=== PATIENT | male | born 1960 | race Caucasian/White ===

== ENCOUNTER 2020-09-20 14:25 | Emergency (ER) | payer OTHER, SELFPAY ==
--- NOTE | ~2020-09-20 | XR_ITS ---
EXAMINATION: XR wrist LT min 3V EXAM DATE: 09/20/2020 14:47 INDICATION: Left wrist pain after a fall last night . Initial encounter. TECHNIQUE: Left wrist frontal, frontal with ulnar deviation, oblique and lateral projections obtained and reviewed. There is no prior study for comparison. FINDINGS: Left wrist scapholunate joint space is maintained. There are no acute fractures or dislocat ions identified. There is no subcutaneous gas. Mild arteriosclerosis. There are no radiopaque fore ign bodies. IMPRESSION: No acute osseous findings. Reviewed, dictated and finalized at location A. IMPRESSION: No acute osseous findings.
[2020-09-20 14:38] VITALS: BP 146/65; PULSE 71; RESP 18; TEMP 37.1; O2SAT 97
--- NOTE | 2020-09-20 15:00 | ED.UPPEXIN ---
HPI - Extremity Injury (Upper) General Chief Complaint: Extremity Injury, Upper Stated Complaint: left wrist injury Time Seen by Provider: 09/20/20 15:00 Source: patient Mode of arrival: ambulatory History of Present Illness HPI narrative: Patient presents with left wrist pain. Patient states he was trying to step over a board between 2 doorways yesterday lost his balance and fell landed on his left wrist. Patient has pain and swelling to the lateral side of wrist. No deformity noted. MD complaint: injury to: left and wrist Other Extremity Injury: Left: wrist Related Data Allergies Allergy/AdvReac Type Severity Reaction Status Date / Time No Known Allergies Allergy Verified 09/20/20 14:47 Review of Systems Review of Systems: Narrative: CONSTITUTIONAL: Denies fever, chills, or sweats. EYES: Denies visual changes, redness, or discharge. ENT: Denies rhinorrhea, congestion, sore throat, or otalgia. CARDIOVASCULAR: Denies chest pain, palpitations, or edema. RESPIRATORY: Denies cough or dyspnea. GASTROINTESTINAL: Denies abdominal pain, nausea, vomiting, or diarrhea. GENITOURINARY: Denies dysuria or hematuria. SKIN: Denies rash or itching. MUSCULOSKELETAL: Denies back pain, joint pain, or myalgia. NEUROLOGIC: Denies headache, numbness, or weakness. PSYCHIATRIC: Denies anxiety or depression. PMFSH Comments At time of signature, agree with nursing past medical, surgical, social and family history. There is no relevant family history pertinent to the presenting complaint Exam Narrative: Exam Narrative: GENERAL: Well-appearing, well-nourished, and in no acute distress. HEAD: Normocephalic, atraumatic. EYES: PERRLA and EOMI. ENT: Nares clear, no rhinorrhea or epistaxis. Mucous membranes moist. NECK: Supple. CHEST: Clear to auscultation. No respiratory distress. HEART: Regular rate and rhythm. No murmur heard. Normal peripheral pulses. ABDOMEN: Soft, nontender, nondistended, normal active bowel sounds. EXTREMITIES: Normal range of motion. No edema. SKIN: Warm, dry, no rash. NEURO: No focal deficits. Alert and oriented x3. [place] Coma Scale Eye Opening: Spontaneous 4 [place] Coma Scale Motor: Obeys Commands 6 [place] Coma Scale Verbal: Oriented 5 [place] Coma Scale Total 15 HAND EXAM/WRIST EXAM - Skin intact, no laceration, no swelling, no erythema, normal digit cascade with flexion of fingers, median, ulnar and radial nerve intact normal sensation of each side of each finger, can perform `ok? sign, `cross over finger test of index and middle fingers? and `thumbs up? sign, no scissoring. normal thumb opposition, good capillary refill and radial pulse. WRIST - ROM is normal - flexion, extension and supination. no swelling. Normal forearm and elbow. ` Course Vital Signs Vital signs: Vital Signs Temperature 37.1 C 09/20/20 14:38 Pulse Rate 71 09/20/20 14:38 Respiratory Rate 18 09/20/20 14:38 Blood Pressure 146/65 H 09/20/20 14:38 Pulse Oximetry 97 09/20/20 14:38 Temperature 37.1 C 09/20/20 14:38 Pulse Rate 71 09/20/20 14:38 Respiratory Rate 18 09/20/20 14:38 Blood Pressure 146/65 H 09/20/20 14:38 Pulse Oximetry 97 09/20/20 14:38 Please DIGNA schedule a followup visit with your personal physician for further evaluation and treatment. Including recheck and discussion of your blood pressure. If your symptoms persist, change or worsen significantly before you can contact your personal physician then please, without delay, go to the emergency department for further evaluation MDM - Extremity Injury (Upper) Differential Diagnosis Differential diagnosis: Likely sprain and strain of wrist, fracture of wrist, finger sprain, dislocation of finger, Colles' fracture, fracture of hand, dislocation of shoulder, fracture of humerus and fracture of clavicle Critical Care Time Critical Care Time Critical Care Time: No Discharge Plan Discharge Clinical Impression: Sprain and strain of wrist Patient Di
== END 2020-09-20 15:05 | disposition home or self-care (01) ==
PROVIDERS: Emergency Provider Nurse Practitioner Family; PCP Internal Medicine
DX: S63.502A Unspecified sprain of left wrist, initial encounter (principal); S66.912A Strain of unspecified muscle, fascia and tendon at wrist and hand level, left hand, initial encounter; W19.XXXA Unspecified fall, initial encounter; Z86.73 Personal history of transient ischemic attack (TIA), and cerebral infarction without residual deficits; E78.00 Pure hypercholesterolemia, unspecified; I10 Essential (primary) hypertension; I25.2 Old myocardial infarction; Z95.5 Presence of coronary angioplasty implant and graft; E11.9 Type 2 diabetes mellitus without complications
CPT/HCPCS: 73110; 99213; G0463

== ENCOUNTER 2020-10-29 13:32 | Emergency (ER) | payer OTHER, SELFPAY ==
--- NOTE | ~2020-10-29 | XR_ITS ---
EXAMINATION: XR chest 2V EXAM DATE: 10/29/2020 14:10 INDICATION: Cough, shortness of breath. Symptoms 2 months. History pneumonia. TECHNIQUE: Frontal and lateral projections of the chest obtained and reviewed. There is no prior [place] dy for comparison. FINDINGS: The lungs are clear. There are no pleural effusions. The cardiomediastinal silhouette is within normal limits. There is no pneumothorax suspected. The bones and soft tissues are unremarkab le. IMPRESSION: No acute cardiopulmonary findings. Reviewed, dictated and finalized at location B.
[2020-10-29 13:40] VITALS: BP 109/64; PULSE 82; RESP 14; TEMP 36.5; O2SAT 98
--- NOTE | 2020-10-29 14:24 | ED.URI ---
HPI - URI/Sore Throat General Chief Complaint: Upper Respiratory Infection Stated Complaint: chills achey cough tight chest Time Seen by Provider: 10/29/20 14:25 Source: patient and RN notes reviewed Mode of arrival: ambulatory Limitations: no limitations History of Present Illness HPI Narrative: 59-year-old male with history of smoking, CVA, hypertension, high cholesterol, [place] with stents, diabetes presents with concern for worsening cough, chills, upper back pain with coughing since Tuesday. Reports several month history of smoker's cough that he feels worsened since Tuesday. He denies chest pain, shortness of breath, diaphoresis. Reports he was vaccinated for Covid in May. He denies rhinorrhea, nasal congestion, sore throat, body aches, fever, loss of sense of taste or smell. Reports symptoms similar to prior cases of pneumonia. MD elicited complaint: cough Related Data Home Medications Medication Instructions Recorded Confirmed amlodipine See Rx Instructions .ROUTE .COMPLEX 09/20/20 10/29/20 aspirin [Aspirin Low Dose] 81 mg PO DAILY 09/20/20 10/29/20 atorvastatin See Rx Instructions .ROUTE .COMPLEX 09/20/20 10/29/20 insulin aspart U-100 [Novolog See Rx Instructions .ROUTE .COMPLEX 09/20/20 10/29/20 Flexpen U-100 Insulin] insulin degludec-liraglutide See Rx Instructions .ROUTE .COMPLEX 09/20/20 10/29/20 [Xultophy 100/3.6] lisinopril See Rx Instructions .ROUTE .COMPLEX 09/20/20 10/29/20 nebivolol [Bystolic] See Rx Instructions .ROUTE .COMPLEX 09/20/20 10/29/20 Allergies Allergy/AdvReac Type Severity Reaction Status Date / Time No Known Allergies Allergy Verified 10/29/20 14:00 Review of Systems Review of Systems: CONSTITUTIONAL: Reports malaise, chills. Denies sweats, or fever. EYES: Denies visual changes, redness, or discharge. ENT: Denies rhinorrhea, congestion, sinus pain, otalgia and sore throat. CARDIOVASCULAR: Denies chest pain, palpitations, or edema. RESPIRATORY: Reports cough. Denies dyspnea. GASTROINTESTINAL: Denies abdominal pain, nausea, vomiting, diarrhea SKIN: Denies rash or itching. MUSCULOSKELETAL: Denies myalgia. NEUROLOGIC: Denies headache. All systems reviewed & are unremarkable except as noted in HPI and below PMFSH Comments At time of signature, agree with nursing past medical, surgical, social and family history. There is no relevant family history pertinent to the presenting complaint Exam Narrative: GENERAL: Well-appearing, well-nourished, and in no acute distress. HEAD: Normocephalic EYES: PERRLA, conjunctivae clear ENT: Nares clear. Mucous membranes moist. TM pearly mckeon with sharp light reflex bilaterally; no tragal tenderness. Oropharynx not erythematous without lesions. Tonsils not enlarged and without exudate, no drooling, no hoarseness, no trismus, uvula midline. NECK: Supple. No lymphadenopathy CHEST: Clear to auscultation, breath sounds equal. No wheezing, rhonchi, rales, or stridor. No respiratory distress, speaks in full sentences. HEART: Regular rate and rhythm. No murmur heard. SKIN: Warm, dry, no rash. NEURO: Alert and oriented x3. PSYCH: Normal mood and affect Course Course Emergency Course: Patient is aware of diagnosis, understands and agrees to treatment plan. Anticipatory guidance given. Patient agrees to follow-up as directed and is aware of reasons to seek care at the emergency department. Portions of this record may have been created with voice recognition software Vital Signs Vital signs: Vital Signs Temperature 97.7 F 10/29/20 13:40 Pulse Rate 82 10/29/20 13:40 Respiratory Rate 14 10/29/20 13:40 Blood Pressure 109/64 10/29/20 13:40 Pulse Oximetry 98 10/29/20 13:40 Temperature 97.7 F 10/29/20 13:40 Pulse Rate 82 10/29/20 13:40 Respiratory Rate 14 10/29/20 13:40 Blood Pressure 109/64 10/29/20 13:40 Pulse Oximetry 98 10/29/20 13:40 Reviewed. MDM - URI/Sore Throat MDM Narrative Medical decision making narrative:
== END 2020-10-29 14:45 | disposition home or self-care (01) ==
PROVIDERS: Emergency Provider Nurse Practitioner; PCP Internal Medicine
DX: U07.1 COVID-19 (principal); Z79.82 Long term (current) use of aspirin; E78.00 Pure hypercholesterolemia, unspecified; I10 Essential (primary) hypertension; I25.2 Old myocardial infarction; E11.9 Type 2 diabetes mellitus without complications; Z86.73 Personal history of transient ischemic attack (TIA), and cerebral infarction without residual deficits; Z95.5 Presence of coronary angioplasty implant and graft
CPT/HCPCS: 71046; 87426; 99213; C9803; G0463